=== PATIENT | female | born 1950 | race Caucasian/White ===

== ENCOUNTER → 2016-07-31 | Outpatient (CLI) | payer BC ==
[~2016-07-31] MED LIST: IXEKIZUMAB; LEXAPRO10 MG PO; MEDROL DOSEPAK4 MG PO; MULTIVITAMIN1 EAC2 PO; NO HOME MEDS; Norvasc PO; Protonix PO; VITAMIN E400 UNIT PO; VITAMIN K100 MCG PO; ZOFRAN4 MG PO
== END | disposition home or self-care (01) ==
LOC: NUC 08:15
DX: E21.1 Secondary hyperparathyroidism, not elsewhere classified (principal)
CPT/HCPCS: 78072; A9500; A9512